=== PATIENT | female | born 1980 | race Caucasian/White ===

== ENCOUNTER 2018-11-15 15:35 | Emergency (ER) | payer BC ==
[~2018-11-15] VITALS: Ht 162.6 cm; Wt 63.0 kg
[~2018-11-15 15:35] MED LIST: IMITREX50 MG PO; PRENATA CHEWAB1 EACH MT; REGLAN10 MG PO
[2018-11-15] MEDS ORDERED: SUMATRIPTAN SUC50 MG PO (15:51)
[2018-11-15] MEDS ORDERED: FROVATRIPTAN S2.5 MG PO (15:52)
--- NOTE | 2018-11-15 15:53 | EKG ---
[facility] [address] [facility] [place], [place] [address] Signed Sinus tachycardia Possible Left atrial enlargement Nonspecific T wave abnormality Abnormal ECG No previous ECGs available Confirmed by TON APPIAH MD ([id number]) on 11/15/2018 3:53:29 PM Electronically Signed By: TON APPIAH MD 11/15/18 1553 PATIENT NAME: OZZY WINTERS Electrocardiogram DATE OF : 82 PHYSICIAN: TON APPIAH MD REPORT #: [id number] REPORT IS CONFIDENTIAL AND NOT TO BE RELEASED WITHOUT AUTHORIZATION
== END 2018-11-15 17:48 | disposition home or self-care (01) ==
LOC: ED 15:35
DX: R07.2 Precordial pain (principal); G43.909 Migraine, unspecified, not intractable, without status migrainosus; Z88.8 Allergy status to other drugs, medicaments and biological substances; Z79.899 Other long term (current) drug therapy
CPT/HCPCS: 71045; 80053; 84484; 85025; 85379; 93005; 93010; 99285-25

== ENCOUNTER 2019-01-30 08:27 | Emergency (ER) | payer BC ==
[~2019-01-30] VITALS: Ht 162.6 cm; Wt 52.2 kg
--- OUTSIDE RECORDS SUMMARY | ~2019-01-30 | XMS | Clinical Summary ---
Demographics + + + | Address | [address] | | | [place] [address] | + + + | Home Phone | | + + + | Preferred Language | Unknown | + + + | Marital Status | | + + + | Anglican Affiliation | Unknown | + + + | Race | Unknown | + + + | Ethnic Group | Unknown | + + + Author + + + | Author | [facility] | + + + | Organization | [facility] | + + + | Address | Unknown | + + + | Phone | Unavailable | + + + Support + + +---------+ + | Name | Relationship | Address | Phone | + + +---------+ + | Shilo Webster | ECON | Unknown | | + + +---------+ + Care Team Providers + +------+ + | Care Digital Cartographic Technician Name | Role | Phone | + +------+ + | Heidi Redding PA-C | PP | | + +------+ + Allergies + + + + + + | Active Allergy | Reactions | Severity | Noted | Comments | | | | | Date | | + + + + + + | Miconazole | Swelling | Medium | 11/01/19 | | | | | | 19 | | + + + + + + | Propranolol | Swelling | Medium | 11/01/19 | | | | | | 19 | | + + + + + + Current Medications + + +--------+---------+------+------+-------+ | Prescription | Sig. | Disp. | Refills | Star | End | Statu | | | | | | t | Date | s | | | | | | Date | | | + + +--------+---------+------+------+-------+ | SUMAtriptan | Take 50 mg by mouth | | | | | Activ | | (IMITREX) 50 MG | as needed for | | | | | e | | tablet | Migraine. May repeat | | | | | | | | dose in 2 hours if | | | | | | | | no relief. Do not | | | | | | | | exceed 2 doses in 24 | | | | | | | | hours. | | | | | | + + +--------+---------+------+------+-------+ | frovatriptan | Take 1/2 to 1 tab by | 10 | 3 | 01/ | | Activ | | (FROVA) 2.5 MG | mouth daily during | tablet | | 02/05 | | e | | tablet | menstrual cycle for | | | 19 | | | | | up to 6 days as | | | | | | | | directed. | | | | | | + + +--------+---------+------+------+-------+ Active Problems Not on file Encounters +--------+ + + + + | Date | Type | Specialty | Care Team | Description | +--------+ + + + + | 01/19/ | Documentati | | [place], | Other | | 2019 | on Only | | FREDERIC Engle | (Headache/migraine | | | | | | Patient Intake Form) | +--------+ + + + + | 01/14/ | Telephone | | Leana Pratt, | Follow-up | | 2019 | | | PA-C | | +--------+ + + + + | 11/01/ | Office | | Leana Pratt, | Migraine without | | 2019 | Visit | | PA-C | aura and without | | | | | | status migrainosus, | | | | | | not intractable | | | | | | (Primary Dx) | +--------+ + + + + from Last 3 Months Social History + +-------+ +--------+------+ | Tobacco Use | Types | Packs/Day | Years | Date | | | | | Used | | + +-------+ +--------+------+ | Never Smoker | | | | | + +-------+ +--------+------+ + +---+---+---+ | Smokeless Tobacco: | | | | | Never Used | | | | + +---+---+---+ + + +---------+ + | Alcohol Use | Drinks/We | oz/Week | Comments | | | ek | | | + + +---------+ + | Yes | | | 1 every 2 weeks | + + +---------+ + + + + | Sex Assigned at | Date Recorded | | | | + + + | Not on file | | + + + Last Filed Vital Signs + + + + | Vital Sign | Reading | Time Taken | + + + + | Blood Pressure | 119/81 | 11/01/2018 9:21 AM PST | + + + + | Pulse | 60 | 11/01/2018 9:21 AM PST | + + + + | Temperature | - | - | + + + + | Respiratory Rate | - | - | + + + + | Oxygen Saturation | 100% | 11/01/2018 9:21 AM PST | + + + + | Inhaled Oxygen | - | - | | Concentration | | | + + + + | Weight | 48.7 kg (107 lb 4.8 | 11/01/2018 9:21 AM PST | | | oz) | | + + + + | Height | 162.6 cm (5' 4") | 11/01/2018 9:21 AM PST | + + + + | Body Mass Index | 18.42 | 11/01/2018 9:21 AM PST | + + + + Plan of Treatment + + + + + | Health Maintenance | Due Date | Last Done | Comments | + + + + + | Vaccine: | | | | | Dtap/Tdap/Td (1 - | 0 | | | | Tdap) | | | | + + + + + | Cervical Cancer | | | | | Screening (Pap) | 1 | | | + + + + + | Vaccine: Influenza | | | | | (Season Ended) | 9 | | | + + + + + Results Not on filefrom Last 3 Months Insurance +---------+--------+ +------+-------+ + | Payer | Benefi | Subscriber | Type | Phone | Address | | | t Plan | ID | | | | | | / | | | | | | | Group | | | | | +---------+--------+ +------+-------+ + | PREMERA | PREMER | [id number] | | | [address] [address] | | | A BLUE | | | | [place], [place] | | | [place] | | | | [phone] | | | FED | | | | | | | PPO | | | | | +---------+--------+ +------+-------+ + + +--------+ +--------+ + + | Guarantor Name | Accoun | Relation to | Date | Phone | Billing Address | | | t Type | Patient | of | | | | | | | | | | + +--------+ +--------+ + + | YUE | Person | Self [birth year] Home: | [address] | | MAR[place] | dana/Branden | | 1979 | [phone] [place] | | [place] | fred | | | [phone] | + +--------+ +--------+ + +
--- OUTSIDE RECORDS SUMMARY | ~2019-01-30 | XMS | Encounter Summary ---
Demographics + + + | Address | [address] | | | [place] [address] | + + + | Home Phone | | + + + | Preferred Language | Unknown | + + + | Marital Status | | + + + | Mandaeism Affiliation | Unknown | + + + | Race | Unknown | + + + | Ethnic Group | Unknown | + + + Author + + + | Author | [facility] | + + + | Organization | [facility] | + + + | Address | Unknown | + + + | Phone | Unavailable | + + + Support + + +---------+ + | Name | Relationship | Address | Phone | + + +---------+ + | Shilo Smith | ECON | Unknown | | + + +---------+ + Care Team Providers + +------+ + | Care Residential Nurse Name | Role | Phone | + +------+ + | Heidi Redding PA-C | PCP | | + +------+ + Reason for Visit +--------+ + | Reason | Comments | +--------+ + | Other | Headache/migraine Patient Intake Form | +--------+ + Encounter Details +--------+ + + + + | Date | Type | Department | Care Team | Description | +--------+ + + + + | 01/19/ | Documentati | [facility] | [facility] | Other | | 2019 | on Only | [facility] | [facility] | (Headache/migraine | | | | [address] | | Patient Intake Form) | | | | [place] | | | | | | [address] | | | | | | [phone] | | | +--------+ + + + + Social History + +-------+ +--------+------+ | Tobacco [...] on file | | + + + as of this encounter Progress Notes Kadie Ferrara, FREDERIC - 01/19/2019 4:20 PM PDTPatient Headache/migraine Intake Form. Se nt to scan.in this encounter Plan of Treatment Not on fileas of this encounter Visit Diagnoses Not on filein this encounter"
--- OUTSIDE RECORDS SUMMARY | ~2019-01-30 | XMS | Encounter Summary ---
Demographics + + + | Address | [address] | | | [place] [address] | + + + | Home Phone | | + + + | Preferred Language | Unknown | + + + | Marital Status | | + + + | Yarsani Affiliation | Unknown | + + + | Race | Unknown | + + + | Ethnic Group | Unknown | + + + Author + + + | Author | [facility] | + + + | Organization | [facility] | + + + | Address | Unknown | + + + | Phone | Unavailable | + + + Support + + +---------+ + | Name | Relationship | Address | Phone | + + +---------+ + | Shilo Smith | ECON | Unknown | | + + +---------+ + Care Team Providers + +------+ + | Care Tools Programmer Name | Role | Phone | + +------+ + | Heidi Redding PA-C | PCP | | + +------+ + Reason for Visit + + + | Reason | Comments | + + + | Follow-up | | + + + Encounter Details +--------+ + + + + | Date | Type | Department | Care Team | Description | +--------+ + + + + | 01/14/ | Telephone | [facility] | Leana Pratt, | Follow-up | | 2019 | | [facility] | [address] | | | | | [address] | [place], [place] | | | | | [place], [place] | [address] | | | | | [address] | | | | | | [phone] | | | +--------+ + + + [...] + + + as of this encounter Plan of Treatment Not on fileas of this encounter Visit Diagnoses Not on filein this encounter"
--- OUTSIDE RECORDS SUMMARY | ~2019-01-30 | XMS | Encounter Summary ---
Demographics + + + | Address | [address] | | | [place] [address] | + + + | Home Phone | | + + + | Preferred Language | Unknown | + + + | Marital Status | | + + + | Mormonism Affiliation | Unknown | + + + | Race | Unknown | + + + | Ethnic Group | Unknown | + + + Author + + + | Author | [facility] | + + + | Organization | [facility] | + + + | Address | Unknown | + + + | Phone | Unavailable | + + + Support + + +---------+ + | Name | Relationship | Address | Phone | + + +---------+ + | Shilo Smith | ECON | Unknown | | + + +---------+ + Care Team Providers + +------+ + | Care Cad Developer Name | Role | Phone | + [...] [place] | | | | | | [address] | | | | | | [phone] | | | +--------+ + + + [...]
--- OUTSIDE RECORDS SUMMARY | ~2019-01-30 | XMS | Encounter Summary ---
Demographics + + + | Address | [address] | | | [place] [address] | + + + | Home Phone | | + + + | Preferred Language | Unknown | + + + | Marital Status | | + + + | Advent Affiliation | Unknown | + + + | Race | Unknown | + + + | Ethnic Group | Unknown | + + + Author + + + | Author | [facility] | + + + | Organization | [facility] | + + + | Address | Unknown | + + + | Phone | Unavailable | + + + Support + + +---------+ + | Name | Relationship | Address | Phone | + + +---------+ + | Shilo Smith | ECON | Unknown | | + + +---------+ + Care Team Providers + +------+ + | Care Manager Recovery Name | Role | Phone | + [...] | | | | aura, not | [place] | Drive | | | | | intractable, | [address] | [place], [place] | | | | | with status | [place], | [address] Phone: | | | | | migrainosus | [place] [address] | [phone] | | | | | | Phone: | Fax: | | | | | | [phone] | [phone] | | | | | | Fax: | | | | | | | [phone] | | + +--------+ + + + + Encounter Details +--------+---------+ + + + | Date | Type | Department | Care Team | Description | +--------+---------+ + + + | 11/01/ | Office | [facility] | Leana Pratt, | Migraine without | | 2019 | Visit | [facility] | [address] | 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 She developed migraines initially in 5231-2375. Initially Excedrin migraine was effective , but less over time. Migraines worse around menstrual cycle. Migraines went away during in 7710-7754, gradually returning after and slightly increased since [...] has normal strength. 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 Will not recommend prescription daily [...]
--- OUTSIDE RECORDS SUMMARY | ~2019-01-30 | XMS | Encounter Summary ---
Demographics + + + | Address | [address] | | | [place] [address] | + + + | Home Phone | | + + + | Preferred Language | Unknown | + + + | Marital Status | | + + + | Buddhism Affiliation | Unknown | + + + | Race | Unknown | + + + | Ethnic Group | Unknown | + + + Author + + + | Author | [facility] | + + + | Organization | [facility] | + + + | Address | Unknown | + + + | Phone | Unavailable | + + + Support + + +---------+ + | Name | Relationship | Address | Phone | + + +---------+ + | Shilo Smith | ECON | Unknown | | + + +---------+ + Care Team Providers + +------+ + | Care Surveyor Helper Name | Role | Phone | + [...] + + | 01/14/ | Telephone | [facility] | Leana Pratt, | Follow-up | | 2019 | | [facility] | [address] | | | | | [address] | [place], [place] | | | | | [place], [place] | [address] | | | | | [address] | | | | | | [phone] | | | +--------+ + + + [...]
--- OUTSIDE RECORDS SUMMARY | ~2019-01-30 | XMS | Encounter Summary ---
Demographics + + + | Address | [address] | | | [place] [address] | + + + | Home Phone | | + + + | Preferred Language | Unknown | + + + | Marital Status | | + + + | Restorationism Affiliation | Unknown | + + + | Race | Unknown | + + + | Ethnic Group | Unknown | + + + Author + + + | Author | [facility] | + + + | Organization | [facility] | + + + | Address | Unknown | + + + | Phone | Unavailable | + + + Support + + +---------+ + | Name | Relationship | Address | Phone | + + +---------+ + | Shilo Smith | ECON | Unknown | | + + +---------+ + Care Team Providers + +------+ + | Care Enrollment Services Vice President Name | Role | Phone | + [...] | | | | aura, not | [place] | [address] | | | | | intractable, | [address] | [place], [place] | | | | | with status | [place], | [address] Phone: | | | | | migrainosus | [place] [address] | [phone] | | | | | | Phone: | Fax: | | | | | | [phone] | [phone] | | | | | | Fax: | | | | | | | [phone] | | + +--------+ + + + + Encounter Details +--------+---------+ + + + | Date | Type | Department | Care Team | Description | +--------+---------+ + + + | 11/01/ | Office | [facility] | Leana Pratt, | Migraine without | | 2019 | Visit | [facility] | [address] | 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 She developed migraines initially in 0461-7956. Initially Excedrin migraine was effective , but less over time. Migraines worse around menstrual cycle. Migraines went away during in 4805-8512, gradually returning after and slightly increased since [...] has normal strength. 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 Will not recommend prescription daily [...]
--- OUTSIDE RECORDS SUMMARY | ~2019-01-30 | XMS | Clinical Summary ---
Demographics + + + | Address | [address] | | | [place] [address] | + + + | Home Phone | | + + + | Preferred Language | Unknown | + + + | Marital Status | | + + + | Moravian Affiliation | Unknown | + + + | Race | Unknown | + + + | Ethnic Group | Unknown | + + + Author + + + | Author | [facility] | + + + | Organization | [facility] | + + + | Address | Unknown | + + + | Phone | Unavailable | + + + Support + + +---------+ + | Name | Relationship | Address | Phone | + + +---------+ + | Shilo Webster | ECON | Unknown | | + + +---------+ + Care Team Providers + +------+ + | Care Screening Representative Name | Role | Phone | + [...] +------+-------+ + | [facility] | [place] | [id number] | | | [address] [address] | | | [employer] [address] | | | | [place], [place] | | | [place] | | | | [address] | | | FED | | | [...] | [place] | fred | | | [phone] | [phone] | + +--------+ +--------+ + +
[~2019-01-30 08:27] MED LIST changes: +FROVATRIPTAN S2.5 MG PO; +SUMATRIPTAN SUC50 MG PO
[2019-01-30] MEDS ORDERED: PROCHLORPERAZIN10 MG PO (16:45)
== END 2019-01-30 10:52 | disposition home or self-care (01) ==
LOC: ED 08:27
DX: G43.909 Migraine, unspecified, not intractable, without status migrainosus (principal); Z88.8 Allergy status to other drugs, medicaments and biological substances; Z79.899 Other long term (current) drug therapy
CPT/HCPCS: 96365; 96375; 99283-25; J1100; J1885; J2405; J3475; J7030

== ENCOUNTER 2019-01-30 14:29 | Emergency (ER) | payer BC ==
[~2019-01-30] VITALS: Ht 162.6 cm; Wt 52.2 kg
--- OUTSIDE RECORDS SUMMARY | ~2019-01-30 | XMS | Encounter Summary ---
Demographics + + + | Address | [address] | | | [place] [address] | + + + | Home Phone | | + + + | Preferred Language | Unknown | + + + | Marital Status | | + + + | Latter Day Affiliation | Unknown | + + + | Race | Unknown | + + + | Ethnic Group | Unknown | + + + Author + + + | Author | [facility] | + + + | Organization | [facility] | + + + | Address | Unknown | + + + | Phone | Unavailable | + + + Support + + +---------+ + | Name | Relationship | Address | Phone | + + +---------+ + | Shilo Smith | ECON | Unknown | | + + +---------+ + Care Team Providers + +------+ + | Care Leather Colorer Name | Role | Phone | + +------+ + | Heidi Redding PA-C | PCP | | + +------+ + Reason for Visit Consult and Treat (Routine) + +--------+ + + + + | Status | Reason | Specialty | Diagnoses / | Referred By | Referred To | | | | | Procedures | Contact | Contact | + +--------+ + + + + | Authorized | | Neurology | Diagnoses | [place], | [place], | | | | | Migraine | [facility] [address] | T[facility]IN [address] | | | | | without | [address] | | | | | aura, not | [address] [place] | [address] | | | | | intractable, | [address] | [place], [place] | | | | | with status | [place], | [address] Phone: | | | | | migrainosus | [place] [address] | [phone] | | | | | | Phone: | Fax: | | | | | | [phone] | [phone] | | | | | | Fax: | | | | | | | [phone] | | + +--------+ + + + + Encounter Details +--------+---------+ + + + | Date | Type | Department | Care Team | Description | +--------+---------+ + + + | 11/01/ | Office | [facility] | Leana Pratt, | Migraine without | | 2019 | Visit | [facility] | [facility] | aura and without | | | | [address] | Drive [place], [place] | status migrainosus, | | | | [place], [place] | [address] | not intractable | | | | [address] | | (Primary Dx) | | | | [phone] | | | +--------+---------+ + + + Social History + +-------+ [...] + + + as of this encounter Last Filed Vital Signs + + + [...] AM PST | + + + + in this encounter Instructions Patient Instructions - Leana Pratt PA-C - 11/01/2018 9:15 AM PSTMay add Vitamin B2(ribo flavin) 400 mg once daily and magnesium 200 mg twice daily for migraine prophylaxis. Any form of magnesium is ok. Magnesium citrate may be preferred. 400 mg up to 800 mg lily y dose. Can find at health food or supplement store or can order online. Encourage non-pharmacological headache prophylaxis including as daily exercise, stress rela xation, proper nutrition, avoid skipping meals, get adequate sleep, avoid over-sleeping. in this encounter Progress Notes Leana Pratt PA-C - 11/01/2018 9:15 AM PSTFormatting of this note may be different from the original. Subjective: Patient ID: Mari Smith is a 38 y.o. female. HPI The patient is seen today at the request of Heidi Redding PA-C for evaluation and management of migraines. She developed migraines initially in 3460-6865. Initially Excedrin migraine was effective , but less over time. Migraines worse around menstrual cycle. Migraines went away during in 1644-8682, gradually returning after and slightly increased since 2018. Often will wake up at 4-5 am with migraine. Denies injury, illness, infection at time of migraine onset. Denies change of migraine fea tures. Headache description: Location: left side more than right temporal area, neck pain, soreness and stiffness. Associated symptoms: nausea, rare vomiting, photophobia, phonophobia. No aura. No focal neurological symptoms such as weakness, numbness, vision loss, diplopia, walking/b alance problem, vertigo, speech problem. Aggravating factors: Light, noise, movement. Stress, dehydration, heat, menstrual cycle, f lourescent lights. Alleviating factors: sumatriptan. Similar migraine symptoms over years, less severe. Current headache frequency: 4-5 migraine episodes per month. Has headache at least a couple days per week. Headache free days per month: 15-20 days per month headache free. Headache duration: lasts 1 day, may recur for 2-3 days headache or migraine. Previous imaging: MRI brain past was normal. No images or reports to review. Previous preventative medications tried: blood pressure medications, allergic reaction to p ropranolol, anti-seizure medication, anti-depressants were not effective. Abortive medications tried: Acetaminophen, aspirin, ibuprofen, naproxen with benefit. Sumatriptan 50-100 mg works well. Family history migraine: mom had migraines. Mom had aortic aneurysm, heart surgery. Sleep: sleeps well several hours per night. Caffeine: 1-2 cups coffee per day in am The following portions of the patient's history were reviewed and updated as appropriate an d is available elsewhere in the record: allergies, current medications, past family history, past medical history, past social history, past surgical history and problem list. Review of Systems HENT: Positive for sinus pressure. Eyes: Positive for photophobia. Gastrointestinal: Positive for nausea. Musculoskeletal: Positive for neck pain. Neurological: Positive for headaches. All other systems reviewed and are negative. Objective: BP 119/81 (BP Location: Right upper arm, Patient Position: Sitting) | Pulse 60 | Ht 1.626 m (5' 4") | Wt 48.7 kg (107 lb 4.8 oz) | SpO2 100% | BMI 18.42 kg/m Neurologic Exam Mental Status Oriented to person, place, and time. Attention: normal. Concentration: normal. Speech: speech is normal Level of consciousness: alert Cranial Nerves Cranial nerves II through XII intact. CN II Visual acuity: normal (VA 20/20 OD and OS. No papilledema on fundoscopic exam) Right visual field deficit: none Left visual field deficit: none CN III, IV, Pupils are equal, round, and reactive to light. Extraocular motions are normal. CN III: no CN III palsy CN : no CN palsy Nystagmus: none Diplopia: none CN V Facial sensation intact. CN VII Facial expression full, symmetric. CN VIII CN VIII normal. Hearing: intact CN IX, X CN IX normal. CN X normal. CN XI CN XI normal. CN XII CN XII normal. Motor Exam Muscle bulk: normal Overall muscle tone: normal Strength Strength 5/5 throughout. Sensory Exam Light touch normal. Gait, Coordination, and Reflexes Gait Gait: normal Coordination Romberg: negative Finger to nose coordination: normal Tandem walking coordination: normal Tremor Resting tremor: absent Intention tremor: absent Action tremor: absent Reflexes Right brachioradialis: 2+ Left brachioradialis: 2+ Right biceps: 2+ Left biceps: 2+ Right patellar: 2+ Left patellar: 2+ Right achilles: 1+ Left achilles: 1+ Right ankle clonus: absent Left ankle clonus: absent Physical Exam Constitutional: She is oriented to person, place, and time. Eyes: Pupils are equal, round, and reactive to light. EOM are normal. Neurological: She is oriented to person, place, and time. She has normal strength. She has a normal Odaoyi-Kcpl-Ehcauk Test, a normal Romberg Test and a normal Tandem Gait Test. Gait normal. Reflex Scores: Bicep reflexes are 2+ on the right side and 2+ on the left side. Brachioradialis reflexes are 2+ on the right side and 2+ on the left side. Patellar reflexes are 2+ on the right side and 2+ on the left side. Achilles reflexes are 1+ on the right side and 1+ on the left side. Psychiatric: Her speech is normal. Assessment and Plan: Migraine without aura, went away during her in 3625-5978, returned after pregnanc y and worsening slightly in frequency since 2018. She had had negative brain MRI in past for migraine headache evaluation. No focal neurological symptoms and no change of migraine features or type of headache over the years. Current migraines are actually less severe than they were in the past. We discussed hormonal component of her migraines and they are worse around her menstrual cy yareli. She can try to take 1/2 to 1 tab of frovatriptan starting couple days prior to her menstrua l period and continue daily for 5-7 days to prevent menstrual related migraine. She had eliu e success last month with taking low dose sumatriptan prophylactically. May add Vitamin B2(riboflavin) 400 mg once daily and magnesium 200 mg twice daily for migra ine prophylaxis. Encourage non-pharmacological headache prophylaxis including as daily exercise, stress rela xation, proper nutrition, avoid skipping meals, get adequate sleep, avoid over-sleeping. Other options would be to possibly consider IUD or continuous oral contraceptive to suppres s her menstrual period which may benefit for her migraines. We did discuss other possible r isks or worsening migraines with oral estrogen containing contraceptives. Advise her to disc uss further with her head chopper if interested. Will not recommend prescription daily migraine prophylaxis at this point unless worsening f requency/severity. Follow up in 3-6 months or as needed if new or worsening symptoms. in this encounter Plan of Treatment Not on fileas of this encounter Visit Diagnoses + + | Diagnosis | + + | Migraine without aura and without status migrainosus, not intractable - Primary | + + | Migraine without aura, without mention of intractable migraine without mention of | | status migrainosus | + +
--- OUTSIDE RECORDS SUMMARY | ~2019-01-30 | XMS | Clinical Summary ---
Demographics + + + | Address | [address] | | | [place] [address] | + + + | Home Phone | | + + + | Preferred Language | Unknown | + + + | Marital Status | | + + + | Lutheran Affiliation | Unknown | + + + | Race | Unknown | + + + | Ethnic Group | Unknown | + + + Author + + + | Author | [facility] | + + + | Organization | [facility] | + + + | Address | Unknown | + + + | Phone | Unavailable | + + + Support + + +---------+ + | Name | Relationship | Address | Phone | + + +---------+ + | Shilo Webster | ECON | Unknown | | + + +---------+ + Care Team Providers + +------+ + | Care Medical Assistant Name | Role | Phone | + [...] +------+-------+ + | [employer] | PREMER | [id number] | | | [address] [address] | | | [address] | | | | [place], [place] | | | [place] | | | | [address] | | | FED | | | [...] | [place] | [place] | | | [phone] | [phone] | + +--------+ +--------+ + +
--- OUTSIDE RECORDS SUMMARY | ~2019-01-30 | XMS | Clinical Summary ---
Demographics + + + | Address | [address] | | | [place] [address] | + + + | Home Phone | | + + + | Preferred Language | Unknown | + + + | Marital Status | | + + + | Mormon Affiliation | Unknown | + + + | Race | Unknown | + + + | Ethnic Group | Unknown | + + + Author + + + | Author | [facility] | + + + | Organization | [facility] | + + + | Address | Unknown | + + + | Phone | Unavailable | + + + Support + + +---------+ + | Name | Relationship | Address | Phone | + + +---------+ + | Shilo Webster | ECON | Unknown | | + + +---------+ + Care Team Providers + +------+ + | Care Senior Loss Control Specialist Name | Role | Phone | + [...] +------+-------+ + | PRE[employer] | PREMER | [id number] | | | [address] [address] | | | [address] | | | | [place], [place] | | | [place] | | | | [phone] | | | FED | | | [...] | [place] | fred | | | [phone] | [phone] | + +--------+ +--------+ + +
--- OUTSIDE RECORDS SUMMARY | ~2019-01-30 | XMS | Encounter Summary ---
Demographics + + + | Address | [address] | | | [place] [address] | + + + | Home Phone | | + + + | Preferred Language | Unknown | + + + | Marital Status | | + + + | Moravian Affiliation | Unknown | + + + | Race | Unknown | + + + | Ethnic Group | Unknown | + + + Author + + + | Author | [facility] | + + + | Organization | [facility] | + + + | Address | Unknown | + + + | Phone | Unavailable | + + + Support + + +---------+ + | Name | Relationship | Address | Phone | + + +---------+ + | Shilo Smith | ECON | Unknown | | + + +---------+ + Care Team Providers + +------+ + | Care Gauge Maker Name | Role | Phone | + [...] [place] | | | | | | [address] | | | | | | [phone] | | | +--------+ + + + [...]
--- OUTSIDE RECORDS SUMMARY | ~2019-01-30 | XMS | Encounter Summary ---
Demographics + + + | Address | [address] | | | [place] [address] | + + + | Home Phone | | + + + | Preferred Language | Unknown | + + + | Marital Status | | + + + | Denominational Affiliation | Unknown | + + + | Race | Unknown | + + + | Ethnic Group | Unknown | + + + Author + + + | Author | [facility] | + + + | Organization | [facility] | + + + | Address | Unknown | + + + | Phone | Unavailable | + + + Support + + +---------+ + | Name | Relationship | Address | Phone | + + +---------+ + | Shilo Smith | ECON | Unknown | | + + +---------+ + Care Team Providers + +------+ + | Care Cylinder Steamer Name | Role | Phone | + [...] [place] | | | | | | [address] | | | | | | [phone] | | | +--------+ + + + [...]
--- OUTSIDE RECORDS SUMMARY | ~2019-01-30 | XMS | Encounter Summary ---
Demographics + + + | Address | [address] | | | [place] [address] | + + + | Home Phone | | + + + | Preferred Language | Unknown | + + + | Marital Status | | + + + | Congregational Affiliation | Unknown | + + + | Race | Unknown | + + + | Ethnic Group | Unknown | + + + Author + + + | Author | [facility] | + + + | Organization | [facility] | + + + | Address | Unknown | + + + | Phone | Unavailable | + + + Support + + +---------+ + | Name | Relationship | Address | Phone | + + +---------+ + | Shilo Smith | ECON | Unknown | | + + +---------+ + Care Team Providers + +------+ + | Care Video Editor Name | Role | Phone | + [...] | | | | aura, not | [address] | [address] | | | | | intractable, | [address] | [place], [place] | | | | | with status | [place], | [address] Phone: | | | | | migrainosus | [place] [address] | [phone] | | | | | | Phone: | Fax: | | | | | | [phone] | [phone] | | | | | | Fax: | | | | | | | [phone] | | + +--------+ + + + + Encounter Details +--------+---------+ + + + | Date | Type | Department | Care Team | Description | +--------+---------+ + + + | 11/01/ | Office | [facility] | Leana Pratt, | Migraine without | | 2019 | Visit | [facility] | [address] | 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 She developed migraines initially in 8399-7662. Initially Excedrin migraine was effective , but less over time. Migraines worse around menstrual cycle. Migraines went away during in 2315-6709, gradually returning after and slightly increased since [...] has normal strength. 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 Will not recommend prescription daily [...]
--- OUTSIDE RECORDS SUMMARY | ~2019-01-30 | XMS | Encounter Summary ---
Demographics + + + | Address | [address] | | | [place] [address] | + + + | Home Phone | | + + + | Preferred Language | Unknown | + + + | Marital Status | | + + + | Anglican Affiliation | Unknown | + + + | Race | Unknown | + + + | Ethnic Group | Unknown | + + + Author + + + | Author | [facility] | + + + | Organization | [facility] | + + + | Address | Unknown | + + + | Phone | Unavailable | + + + Support + + +---------+ + | Name | Relationship | Address | Phone | + + +---------+ + | Shilo Smith | ECON | Unknown | | + + +---------+ + Care Team Providers + +------+ + | Care Blind Lacer Name | Role | Phone | + [...] + + | 01/14/ | Telephone | [facility] | Leana Pratt, | Follow-up | | 2019 | | [facility] | [address] | | | | | [address] | [place], [place] | | | | | [place], [place] | [address] | | | | | [address] | | | | | | [phone] | | | +--------+ + + + [...]
--- OUTSIDE RECORDS SUMMARY | ~2019-01-30 | XMS | Encounter Summary ---
Demographics + + + | Address | [address] | | | [place] [address] | + + + | Home Phone | | + + + | Preferred Language | Unknown | + + + | Marital Status | | + + + | Scientology Affiliation | Unknown | + + + | Race | Unknown | + + + | Ethnic Group | Unknown | + + + Author + + + | Author | [facility] | + + + | Organization | [facility] | + + + | Address | Unknown | + + + | Phone | Unavailable | + + + Support + + +---------+ + | Name | Relationship | Address | Phone | + + +---------+ + | Shilo Smith | ECON | Unknown | | + + +---------+ + Care Team Providers + +------+ + | Care Circuit Breaker Supervisor Name | Role | Phone | + [...] + + | 01/14/ | Telephone | [facility] | Leana Pratt, | Follow-up | | 2019 | | [facility] | [address] | | | | | [address] | [place], [place] | | | | | [place], [place] | [address] | | | | | [address] | | | | | | [phone] | | | +--------+ + + + [...]
--- OUTSIDE RECORDS SUMMARY | 2019-01-30 14:32 | XMS ---
PreManage Notification: OZZY WINTERS Security Toggle Press Folder And Feeder Events No recent Security Events currently on file CRITERIA MET - [facility] - 2 Visits in 30 Days CARE PROVIDERS TAN [employer] Current PHONE: Unknown REBEKAH COULTER [facility] Current PHONE: [phone] REBEKAH COULTER Primary Care 12/17/2008-Current PHONE: Unknown DAVID WALLER Primary Care 12/17/2008-Current PHONE: Unknown Aliyah has no Care Guidelines for this patient. Gilma VISIT COUNT (12 MO.) 3 MAYLIN Jin TOTAL 3 NOTE: Visits indicate total known visits. ED/UCC VISIT TRACKING (12 MO.) 01/30/2019 14:30 [facility] [place] TYPE: Emergency COMPLAINT: - HEADACHE, VOMITING 01/30/2019 08:28 [facility] [place] TYPE: Emergency COMPLAINT: - HEADACHE 11/15/2018 15:36 [facility] [place] TYPE: Emergency COMPLAINT: - CHEST PAIN DIAGNOSES: - Allergy status to other drugs, medicaments and biological substances status - Other termite treater (current) drug therapy - Precordial pain - Migraine, unspecified, not intractable, without status migrainosus INPATIENT VISIT TRACKING (12 MO.) No inpatient visits to display in this time frame [id number]
[2019-01-30] MEDS ORDERED: PROCHLORPERAZIN10 MG PO (16:45)
== END 2019-01-30 16:56 | disposition home or self-care (01) ==
LOC: ED 14:29
DX: G43.909 Migraine, unspecified, not intractable, without status migrainosus (principal); R11.10 Vomiting, unspecified; Z88.8 Allergy status to other drugs, medicaments and biological substances; Z79.899 Other long term (current) drug therapy
CPT/HCPCS: 96361; 96374; 96375; 99283-25; J0780; J1200; J1885; J2765; J7030